=== PATIENT | male | born 1940 | race Caucasian/White ===

== ENCOUNTER 2023-06-02 12:41 | Outpatient (CLI) | payer MEDICARE, SELFPAY ==
--- NOTE | 2023-06-02 13:00 | MR_ITS ---
[facility] [address] [facility] [id number] Phone:?[phone] Fax:?[phone] Referring Physician Information: Christian Brambila M.D. [address] [place] [id number] Phone:?[phone] Fax:?[phone] Patient:?Tomás Max D.O.B:?1940 Sex:?Male Phone:?[phone] [facility] MRN:?[id number] Exam Date:?06/02/2023 EXAM: MRI LUMBAR SPINE WITHOUT CONTRAST CLINICAL INFORMATION: Low back pain and lower extremity radicular symptoms. TECHNICAL INFORMATION: MRI lumbar spine was obtained on 1.5 Kristel magnet including sagittal T2, T1, and STIR images. Axial T2 and T1-weighted images. INTERPRETATION: There is straightening of the lordotic curvature. Convex to the right curvature of the lumbar spine. No loss of vertebral body height. Inflammatory endplate change at L4-5 and L5-S1. The conus is at the L1 level and is normal in appearance. Fat signal associated with the filum terminale. Benign hemangioma within the left L3 vertebral body extending into the pedicle. 1 cm cystic lesion in the right kidney consistent with renal cysts. S1-2: Rudimentary disc space and hypoplastic facet joints. No central spinal canal or foraminal stenosis. L5-S1: Moderate to severe degenerative disc disease with disc bulge. No central canal stenosis. Mild subarticular recess narrowing. Moderate bilateral facet arthropathy. Severe right foraminal stenosis with right L5 ganglion impingement. Moderate to severe left foraminal stenosis with left L5 ganglion impingement. L4-5: Severe degenerative disc disease with disc bulge and marginal osteophyte. No central spinal canal stenosis. Mild subarticular recess narrowing. Mild bilateral facet arthropathy. Moderate bilateral foraminal stenosis with encroachment upon the L4 ganglia. L3-4: Mild degenerative disc disease and disc bulge. Left posterior lateral and medial foraminal cranially extruded disc herniation measuring 6 mm AP and 20 mm SI possibly with associated hematoma. Left L3 nerve impingement. Mild facet arthropathy and ligamentum flavum thickening contribute to mild dural sac narrowing. Foramen on the right is patent. L2-3: Mild degenerative disc disease with 3 mm left posterior lateral cranially extruded disc herniation. Mild facet arthropathy and ligamentum flavum thickening. Mild dural sac narrowing. Mild left foraminal stenosis. L1-2: Mild degenerative disc disease and disc bulge. No central spinal canal or foraminal stenosis. Facet joints are unremarkable. T12-L1 and T11-12: No central spinal canal or foraminal stenosis. CONCLUSION: 1. 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 Mild dural sac narrowing. 2. Severe right and moderate to severe left foraminal stenosis at L5-S1 with L5 ganglion impingement. 3. Moderate bilateral foraminal stenosis at L4-5 with encroachment upon the L4 nerves. 4. Inflammatory endplate change at L4-5 and L5-S1 which may represent a cause of axial low back pain. 5. Fatty filum terminale. LPB Electronically signed on 06/03/2023 2:16:00 PM by Lauren Hernandez M.D.
== END 2023-06-02 12:42 | disposition home or self-care (01) ==
LOC: MRI 12:44
PROVIDERS: Visit Provider Orthopaedic Surgery
DX: M51.26 Other intervertebral disc displacement, lumbar region (principal); M48.061 Spinal stenosis, lumbar region without neurogenic claudication; M54.50 Low back pain, unspecified; M54.17 Radiculopathy, lumbosacral region; M54.30 Sciatica, unspecified side; M79.605 Pain in left leg; R29.898 Other symptoms and signs involving the musculoskeletal system
CPT/HCPCS: 72148